=== PATIENT | male | born 1955 | race Caucasian/White ===

== ENCOUNTER 2025-04-15 19:32 | Emergency (ER) | payer MEDICARE ==
[~2025-04-15] VITALS: Ht 177.8 cm; Wt 79.5 kg
[2025-04-15] MEDS: FAMOTIDINE 20 MG/2 ML VIAL IVP ONE (20:20)
[2025-04-15 20:39] LABS: BASO # 0.0 10^3/uL (0.0-0.2); BASO % 0.3 % (0.0-1.0); EOS # 0.1 10^3/uL (0.0-0.5); EOS % 0.8 % (0.0-3.0); LYMPH # 2.1 10^3/uL (1.5-5.0); LYMPH % 18.8 % (24.0-44.0); MONO # 0.6 10^3/uL (0.0-0.8); MONO % 5.1 % (2.0-8.0); NEUTROPHILS # 8.2 10^3/uL (1.5-8.5); NEUTROPHILS % 74.4 % (36.0-66.0); PLATELET COUNT, AUTOMATED 220 10^3/uL (150-450)
[2025-04-15 21:47] VITALS: BP 153/95; TEMP 97.6; O2SAT 95
[2025-04-15 21:53] LABS: CALCIUM LEVEL 8.8 MG/DL (8.3-10.6); CARBON DIOXIDE LEVEL 25 MMOL/L (20-31); CHLORIDE LEVEL 103 MMOL/L (98-107); CREATININE FOR GFR 0.61 MG/DL (0.70-1.30); GLOMERULAR FILTRATION RATE > 90.0 (>42); POTASSIUM SERUM 4.3 MMOL/L (3.5-5.1); SODIUM LEVEL 139 MMOL/L (136-145)
== END 2025-04-15 21:58 | disposition left against medical advice (07) ==
LOC: M ED 19:32
DX: T63.441A Toxic effect of venom of bees, accidental (unintentional), initial encounter (principal); I45.81 Long QT syndrome; I45.10 Unspecified right bundle-branch block; E11.9 Type 2 diabetes mellitus without complications; I10 Essential (primary) hypertension; I25.2 Old myocardial infarction; F10.10 Alcohol abuse, uncomplicated; Z86.79 Personal history of other diseases of the circulatory system; Z91.030 Bee allergy status; Z88.0 Allergy status to penicillin; Z53.9 Procedure and treatment not carried out, unspecified reason
CPT/HCPCS: 80048; 85025; 93005; 93041; 94760; 96374; 96375; 99285; J1308; J2919